=== PATIENT | female | born 1975 | race Caucasian/White ===

== ENCOUNTER 2019-04-17 09:37 | Day surgery (SDC) | payer BC, MEDICAID ==
[~2019-04-17] VITALS: Ht 170.2 cm; Wt 71.7 kg
[~2019-04-17 09:37] MED LIST: BUSP30TA11 PO; DIVA500T53 PO; FERR-20 PO; MEDR5TAB28 OR; MIRT1TAB38 PO
[2019-04-17] MEDS ORDERED: PROPOFOL 10 MG/ML 20 ML IV ONE (12:06)
[2019-04-17] MEDS ORDERED: SODIUM CHLORIDE LOCK 10 ML ONE (12:06)
[2019-04-17] MEDS ORDERED: ONDANSETRON HCL 4 MG/2 ML VIAL ONE (12:06)
[2019-04-17] MEDS ORDERED: MEPERIDINE HCL (25 MG/ML) 1ML VIAL ONE (12:06)
[2019-04-17] MEDS ORDERED: MIDAZOLAM HCL 1MG/1ML-2 ML VIAL ONE (12:06)
[2019-04-17] MEDS ORDERED: ceFAZolin 1GM/50ML 50 ML IV ONE (12:25)
[2019-04-17] MEDS ORDERED: fentaNYL CITRATE 100 MCG/2 ML VL ONE (13:05)
[2019-04-17] MEDS ORDERED: LACTATED RINGER'S 1,000 ML IV SCH (13:40)
[2019-04-17 14:25] VITALS: BP 98/51
== END 2019-04-17 14:35 | disposition home or self-care (01) ==
LOC: SUR 09:37
PROVIDERS: ATTEND Specialist
DX: N92.0 Excessive and frequent menstruation with regular cycle (principal); N93.9 Abnormal uterine and vaginal bleeding, unspecified; D64.89 Other specified anemias; F39 Unspecified mood [affective] disorder; F32.9 Major depressive disorder, single episode, unspecified; Z79.899 Other long term (current) drug therapy; Z98.890 Other specified postprocedural states; Z88.8 Allergy status to other drugs, medicaments and biological substances; Z88.0 Allergy status to penicillin
CPT/HCPCS: 58558; 86850; 86900; 86901; J0690; J2175; J2250; J2405; J2704; J3010

== ENCOUNTER 2019-07-31 06:25 | Day surgery (SDC) | payer BC, MEDICAID ==
[2019-07-28 11:48] LABS: Basophils # (auto) 0.1 uL; Basophils % (auto) 1.8 % (0.0-2.0); Eosinophils # (auto) 0.1 uL; Eosinophils % (auto) 1.3 % (0.0-7.0); Hemoglobin 13.8 g/dL (12.2-16.2); Lymphocytes # (auto) 1.5 uL; Mean Corpuscular Hemoglobin 29.5 pg (28.0-32.0); Mean Corpuscular Hgb Conc. 32.8 g/dL (32.0-36.0); Mean Corpuscular Volume 90.1 fL (80.0-100.0); Monocytes # (auto) 0.4 uL; Monocytes % (auto) 7.3 % (0.0-12.0); Neutrophils # (auto) 2.9 uL; Neutrophils % (auto) 59.6 % (37.0-80.0); Nucleated Red Blood Cells % 0.1 %; Platelet Count (auto) 171 10^3/uL (140-450); Red Blood Cells 4.67 10^6/uL (4.0-5.20); Red Cell Distribution Width 14.2 % (11.8-14.3); White Blood Cell 4.8 10^3/uL (4.4-10.8)
[2019-07-28 11:59] LABS: Urine Bacteria NONE SEEN /hpf (None Seen); Urine Blood Negative /uL (Negative); Urine Mucus FEW (None Seen); Urine Specific Gravity 1.018 (1.001-1.035); Urine WBC 4 /hpf (0 - 5)
[2019-07-28 12:07] LABS: INR 0.95 (0.9-1.15); Partial Thromboplastin Time 26.4 sec (23.64-32.05)
[2019-07-28 12:14] LABS: Albumin 3.9 g/dL (3.4-5.0); BUN/Creatinine Ratio 11.1; Calcium 8.2 mg/dL (8.5-10.1)
[2019-07-28 12:16] LABS: Bilirubin, Total 0.4 mg/dL (0.2-1.0); Total Protein 7.1 g/dL (6.4-8.2)
[~2019-07-31] VITALS: Ht 170.2 cm; Wt 72.6 kg
[~2019-07-31 06:25] MED LIST changes: -BUSP30TA11 PO; -MEDR5TAB28 OR
[2019-07-31] MEDS ORDERED: SUCCINYLCHOLINE CHLORIDE 20 MG/ML 10ML VIAL IV ONE (07:03)
[2019-07-31] MEDS ORDERED: ceFAZolin 1GM/50ML 50 ML IV ONE (07:11)
[2019-07-31] MEDS ORDERED: MIDAZOLAM HCL 1MG/1ML-2 ML VIAL ONE (07:14)
[2019-07-31] MEDS ORDERED: PROPOFOL 10 MG/ML 20 ML IV ONE (07:14)
[2019-07-31] MEDS ORDERED: ONDANSETRON HCL 4 MG/2 ML VIAL ONE (07:14)
[2019-07-31] MEDS ORDERED: fentaNYL CITRATE 100 MCG/2 ML VL ONE (07:14)
[2019-07-31] MEDS ORDERED: SODIUM CHLORIDE LOCK 10 ML ONE (07:14)
[2019-07-31] MEDS ORDERED: LACTATED RINGER'S 1,000 ML IV SCH (08:20)
[2019-07-31] MEDS ORDERED: ONDANSETRON HCL 4 MG/2 ML VIAL IV PRN (08:30)
[2019-07-31 08:46] VITALS: BP 107/65
== END 2019-07-31 09:14 | disposition home or self-care (01) ==
LOC: SUR 06:25
PROVIDERS: ATTEND Specialist
DX: N92.0 Excessive and frequent menstruation with regular cycle (principal); N81.4 Uterovaginal prolapse, unspecified; D64.9 Anemia, unspecified; F41.9 Anxiety disorder, unspecified; E11.9 Type 2 diabetes mellitus without complications; E66.01 Morbid (severe) obesity due to excess calories; Z68.25 Body mass index [BMI] 25.0-25.9, adult; Z79.899 Other long term (current) drug therapy; Z88.6 Allergy status to analgesic agent; Z98.890 Other specified postprocedural states
CPT/HCPCS: 36415; 58563; 80053; 81001; 84702; 85025; 85610; 85730; 86850; 86900; 86901; J0330; J0690; J2250; J2405; J2704; J3010